=== PATIENT | female | born 1975 | race Caucasian/White ===

== ENCOUNTER → 2020-04-07 | Outpatient (CLI) | payer MEDICARE, MEDICAID ==
[2020-05-13 22:11] LABS: HCG, SERUM QUANTITATIVE < 1.0 MIU/ML; PROGESTERONE 0.42 NG/ML
== END ==
LOC: M LAB 04-06 14:10
PROVIDERS: ATTEND Obstetrics & Gynecology
DX: N93.9 Abnormal uterine and vaginal bleeding, unspecified (principal); N94.89 Other specified conditions associated with female genital organs and menstrual cycle